=== PATIENT | female | born 1985 | race Caucasian/White ===

== ENCOUNTER 2025-07-14 15:36 | Emergency (ER) | payer OTHER ==
[~2025-07-14] VITALS: Ht 160 cm; Wt 65.3 kg
[2025-07-14 15:41] VITALS: TEMP 98.1
[2025-07-14 17:00] LABS: APPEARANCE,URINE CLEAR (CLEAR); BLOOD, URINE Negative Ery/uL (NEGATIVE); LEUKOCYTE ESTERASE ,URINE Negative (NEGATIVE); NITRITE, URINE NEGATIVE (NEGATIVE); UGLUCOSE Negative (NEGATIVE)
[2025-07-14 17:03] LABS: PREGNANCY TEST URINE QUAL NEGATIVE (NEGATIVE)
[2025-07-14 17:08] LABS: CALCIUM OXALATE CRYSTALS,UR Moderate /HPF (None Seen)
[2025-07-14 17:09] LABS: ADD URINE CULTURE YES; SQUAMOUS EPITHELIAL CELL,UR Few /HPF (None Seen)
[2025-07-14 18:11] VITALS: BP 121/70; O2SAT 98
== END 2025-07-14 17:58 | disposition home or self-care (01) ==
LOC: ER 15:51
DX: R10.20 Pelvic and perineal pain unspecified side (principal)
CPT/HCPCS: 76856-TC; 81001; 84703-TC; 87086-TC